=== PATIENT | female | born 1965 | race Caucasian/White ===

== ENCOUNTER 2019-11-05 20:00 | Emergency (ER) | payer BC ==
[~2019-11-05] VITALS: Ht 160 cm; Wt 70.3 kg
[2019-11-05 20:05] VITALS: BP_SYST 168
--- NOTE | 2019-11-05 20:11 | NUR ---
Placed in room 2 . Placed on sales service technician, blood pressure machine and pulse oximeter. To gown for exam. Side rails up. Report given to Yary GUNTER.
--- NOTE | 2019-11-05 20:15 | NUR ---
Pt BIB EMS with c/o anxiety. Per EMS, pt was at mothers and anxiety began. Per , pt had a similar episode "a few weeks ago" when her mother . Per , pt was seen by primary and given medication for anxiety. Pt A&Ox4 but appears distraught. Pt states "I dont know how I got here but I have to go back to my mom. She gets buried tomorrow." Lung sounds clear bilaterally, no SOB noted. Will continue to monitor.
--- NOTE | 2019-11-05 20:20 | NUR ---
ER Dr. Moreland at bedside examining patient.
[2019-11-05 21:00] VITALS: BP_SYST 112
--- NOTE | 2019-11-05 21:00 | NUR ---
Patient given written and verbal discharge instructions and verbalizes understanding. ER MD NORRIS discussed with patient the results and treatment provided. Patient in stable condition. ID arm band removed. NO Rx given. Patient educated on pain management and to follow up with PMD. Pain Scale 0/10. Opportunity for questions provided and answered. Medication side effect fact sheet provided.
== END 2019-11-05 21:00 | disposition home or self-care (01) ==
LOC: SED 20:00
DX: F41.9 Anxiety disorder, unspecified (principal); I10 Essential (primary) hypertension; Z88.0 Allergy status to penicillin
CPT/HCPCS: 99283